=== PATIENT | male | born 1990 ===

== ENCOUNTER 2021-11-19 19:43 | Emergency (ER) | payer SELFPAY ==
[2021-11-19] MEDS: Ondansetron 4 MG/2 ML SDV IVPUSH ONE (20:26)
[2021-11-19] MEDS: Sodium Chloride 0.9% 1,000 ML IV ONE (20:26)
[2021-11-19] MEDS: Morphine 4 MG/ML VIAL IVPUSH ONE (20:27)
[2021-11-19 21:03] LABS: CARBON DIOXIDE,CO2 24.9 mmol/L (21.0-32.0); POTASSIUM,K 3.5 mmol/L (3.5-5.1)
[2021-11-19] MEDS: Iopamidol 755 MG/ML 500 ML Multipack Bottle IVPUSH STA (21:50)
== END 2021-11-19 22:28 | disposition home or self-care (01) ==
LOC: MW.ED 19:43
DX: R10.84 Generalized abdominal pain (principal); Z20.822 Contact with and (suspected) exposure to COVID-19
CPT/HCPCS: 36415; 74177; 80053; 81003; 83690; 83735; 85025; 87635; 96374; 96375; 99285; J2270; J2405; J7030; Q9967; 99284; U0002